=== PATIENT | male | born 1970 | race Caucasian/White ===

== ENCOUNTER 2018-06-16 09:53 | Emergency (ER) | payer MEDICARE ==
[~2018-06-16] VITALS: Ht 180.3 cm; Wt 104.3 kg
[~2018-06-16 09:53] MED LIST: BACL10 PO; BUDE6HFA INH; DULERA 100 MCG/13 GM INH; ERGO400 PO; ESCI20 PO; FENOFIBRATE40 MG PO; FURO20 PO; GABA300 PO; IBUP400 PO; LITH300C PO; LORA1 PO; Lasix40 MG PO; METO25 PO; MONT10T PO; Nasonex17 GM; Norco 5-325 Ta1 EACH PO; Omeprazole20 M1; PANT20 PO; POTCHL20ER PO; Percocet 10-321 EACH PO; Prozac20 MG PO; Valium5 MG PO
[2018-06-16] MEDS ORDERED: ALFU10 PO (09:58)
[2018-06-16] MEDS ORDERED: PREG50 PO (09:59)
[2018-06-16] MEDS ORDERED: NORT25 PO (09:59)
[2018-06-16 10:21] LABS: Calcium, Ionized (POC) 1.19 mmol/L (1.10-1.46); Chloride (POC) 101 mmol/L (98-108); Creatinine (POC) 1.1 mg/dL (0.8-1.3); Glucose (ISTAT POC) 100 mg/dL (70-99); Hemoglobin (POC) 14.6 g/dL (13.5-17.5); Sodium (POC) 139 mmol/L (135-148); Total CO2 (POC) 30 mmol/L (21-32)
[2018-06-16 11:59] LABS: Lithium 0.87 mmol/L (0.60-1.20)
== END 2018-06-16 14:01 | disposition home or self-care (01) ==
LOC: ER 09:53
PROVIDERS: Emergency Medicine
DX: M79.2 Neuralgia and neuritis, unspecified (principal); R25.2 Cramp and spasm; E86.0 Dehydration; G47.00 Insomnia, unspecified; F17.210 Nicotine dependence, cigarettes, uncomplicated; Z88.5 Allergy status to narcotic agent; Z79.899 Other long term (current) drug therapy
CPT/HCPCS: 80047; 80178; 85014; 96360; 99284-25; J7030

== ENCOUNTER 2018-10-18 17:13 | Observation (INO) | payer MEDICARE ==
[~2018-10-18] VITALS: Ht 180.3 cm; Wt 104.3 kg
[~2018-10-18 17:13] MED LIST changes: +ALFU10 PO; +NORT25 PO; +PREG50 PO
[2018-10-18 18:03] LABS: Source, Urine Clean Catch
[2018-10-18 18:09] LABS: Appearance, Urine Clear (Clear); Bilirubin, Urine Neg (Neg); Blood, Urine 1+ (Neg); Color, Urine Yellow (P-Yellow); Glucose Qualitative, Urine Neg (Neg); Ketones, Urine Neg (Neg); Leukocyte Esterase, Urine 1+ (Neg); Nitrite, Urine Neg (Neg); Protein, Urine Neg (Neg); Specific Gravity, Urine 1.005 (1.003-1.022); Urobilinogen, Urine NORM (Normal)
[2018-10-18 18:26] LABS: U Amphetamine Screen Not Detected; U Barbituate Screen Not Detected; U Benzodiazapine Screen Not Detected; U Cocaine Screen Not Detected; U Methadone Screen Not Detected; U Methamphetamine Screen Not Detected
[2018-10-18 18:27] LABS: U Buprenorphine Screen Not Detected; U Cannabinoids Screen DETECTED; U Opiates Screen DETECTED; U Oxycodone Screen Not Detected; U Phencyclidine Screen Not Detected; U Propoxyphene Screen Not Detected
[2018-10-18 18:32] LABS: Bacteria Few /hpf; Squamous Epithelial Cells Few /hpf (Few); White Blood Cells, Urine 0-2 /hpf (0-5)
[2018-10-18 19:37] LABS: BASOPHILS PERCENT AUTO 1 % (0-2); EOSINOPHILS ABSOLUTE AUTO 0.19 K/mm3 (0.00-0.68); EOSINOPHILS PERCENT AUTO 1 % (0-6); Hematocrit 47.7 % (37.0-53.0); Hemoglobin 15.7 g/dL (13.5-17.5); IMMATURE GRAN ABSOLUTE AUTO 0.04 K/mm3 (0.00-0.10); IMMATURE GRAN PERCENT AUTO 0 % (0-1); LYMPHOCYTES ABSOLUTE AUTO 2.93 K/mm3 (0.84-5.20); LYMPHOCYTES PERCENT AUTO 22 % (21-46); MONOCYTES ABSOLUTE AUTO 0.71 K/mm3 (0.16-1.47); MONOCYTES PERCENT AUTO 5 % (4-13); Mean Corpuscular HGB 27.5 pg (26.0-34.0); Mean Corpuscular HGB Conc 32.9 g/dL (31.5-36.5); Mean Corpuscular Volume 84 fL (80-100); Mean Platelet Volume 8.1 fL (9.1-12.4); NEUTROPHILS PERCENT AUTO 70 % (41-73); Platelet Count 207 K/mm3 (150-400); RDW Coefficient Variation 13.9 % (11.7-14.2); RDW Standard Deviation 42.2 fL (35.1-46.3); Red Blood Cell Count 5.71 M/mm3 (4.30-5.90); White Blood Cell Count 13.17 K/mm3 (4.00-11.30)
[2018-10-18 20:01] LABS: Lithium 0.94 mmol/L (0.60-1.20)
[2018-10-18 20:03] LABS: Alanine Aminotransfer (ALT/SGP 44 U/L (12-78); Albumin/Globulin Ratio 1.2 (0.8-1.8); Alk Phos 59 U/L (50-136); Anion Gap 8 mmol/L (6-16); Aspartate Aminotrans (AST/SGOT 27 U/L (12-37); Bilirubin, Total 0.5 mg/dL (0.1-1.0); Blood Urea Nitrogen 10 mg/dL (8-24); Bun/Creatinine Ratio 9.1 (12.0-20.0); CO2, Blood 25 mmol/L (21-32); Calcium, Blood 9.3 mg/dL (8.5-10.1); Chloride, Blood 104 mmol/L (98-108); Ethanol (Alcohol), Blood, Med <3 mg/dL; Globulin, Blood 3.3 g/dL (2.2-4.0); Glomerular Filtration Rate >60 (60-); Glucose, Blood 99 mg/dL (70-99); Potassium, Blood 4.1 mmol/L (3.5-5.5); Salicylate 3.8 mg/dL (2.8-20.0); Sodium, Blood 137 mmol/L (136-145); Total Protein, Blood 7.3 g/dL (6.4-8.2)
[2018-10-18 20:14] LABS: Acetaminophen, Random <2.0 ug/mL (10.0-30.0)
[2018-10-18] MEDS ORDERED: Lithium Carbon150 MG PO (22:58)
[2018-10-18] MEDS ORDERED: Lithium Carbon450 MG PO (22:58)
[2018-10-18] MEDS ORDERED: MONT10T PO (23:00)
[2018-10-18] MEDS ORDERED: BUDE6HFA INH (23:00)
[2018-10-18] MEDS ORDERED: ARIP15 PO (23:00)
[2018-10-21 08:48] LABS: Lithium 0.72 mmol/L (0.60-1.20)
[2018-10-21] MEDS ORDERED: OLAN5 PO (09:25)
== END 2018-10-21 10:10 | disposition home or self-care (01) ==
LOC: ER 17:13 → EOR 17:14
PROVIDERS: Emergency Medicine; Physician Assistant; Psychiatry & Neurology Psychiatry
DX: R45.851 Suicidal ideations (principal); R45.850 Homicidal ideations; F31.10 Bipolar disorder, current episode manic without psychotic features, unspecified; F17.210 Nicotine dependence, cigarettes, uncomplicated; Z79.899 Other long term (current) drug therapy
CPT/HCPCS: 80053; 80178; 81001; 84443; 85025; 87086; 94640; 94760; 96372; 99285-25; C9113; G0378; G0480; Q0163; Q3014

== ENCOUNTER 2018-10-23 03:50 | Emergency (ER) | payer MEDICARE ==
[~2018-10-23] VITALS: Ht 182.9 cm; Wt 108.9 kg
[~2018-10-23 03:50] MED LIST changes: +ARIP15 PO; +Lithium Carbon150 MG PO; +Lithium Carbon450 MG PO; +OLAN5 PO
[2018-10-23 04:44] LABS: Lithium 0.84 mmol/L (0.60-1.20)
[2018-10-23 05:00] LABS: Calcium, Ionized (POC) 1.17 mmol/L (1.10-1.46); Chloride (POC) 105 mmol/L (98-108); Creatinine (POC) 1.2 mg/dL (0.8-1.3); Glucose (ISTAT POC) 111 mg/dL (70-99); Hemoglobin (POC) 14.6 g/dL (13.5-17.5); Potassium (POC) 3.9 mmol/L (3.5-5.5); Sodium (POC) 137 mmol/L (135-148); Total CO2 (POC) 24 mmol/L (21-32)
== END 2018-10-23 05:52 | disposition home or self-care (01) ==
LOC: ER 03:50
PROVIDERS: Emergency Medicine
DX: S09.90XA Unspecified injury of head, initial encounter (principal); M62.830 Muscle spasm of back; F17.210 Nicotine dependence, cigarettes, uncomplicated; Z88.5 Allergy status to narcotic agent; Z91.018 Allergy to other foods; Z79.899 Other long term (current) drug therapy; W06.XXXA Fall from bed, initial encounter
CPT/HCPCS: 80047; 80178; 85014; 99283

== ENCOUNTER → 2019-02-20 | Outpatient (CLI) | payer MEDICARE ==
[2019-02-20 12:31] LABS: BASOPHILS ABSOLUTE AUTO 0.09 K/mm3 (0.00-0.23); BASOPHILS PERCENT AUTO 1 % (0-2); EOSINOPHILS ABSOLUTE AUTO 0.23 K/mm3 (0.00-0.68); EOSINOPHILS PERCENT AUTO 3 % (0-6); Hematocrit 48.1 % (37.0-53.0); Hemoglobin 15.8 g/dL (13.5-17.5); IMMATURE GRAN ABSOLUTE AUTO 0.03 K/mm3 (0.00-0.10); IMMATURE GRAN PERCENT AUTO 0 % (0-1); LYMPHOCYTES PERCENT AUTO 27 % (21-46); MONOCYTES ABSOLUTE AUTO 0.56 K/mm3 (0.16-1.47); MONOCYTES PERCENT AUTO 7 % (4-13); Mean Corpuscular HGB 27.4 pg (26.0-34.0); Mean Corpuscular HGB Conc 32.8 g/dL (31.5-36.5); Mean Corpuscular Volume 83 fL (80-100); NEUTROPHILS ABSOLUTE AUTO 5.27 K/mm3 (1.96-9.15); NEUTROPHILS PERCENT AUTO 62 % (41-73); Platelet Count 184 K/mm3 (150-400); RDW Standard Deviation 42.1 fL (35.1-46.3); Red Blood Cell Count 5.77 M/mm3 (4.30-5.90); White Blood Cell Count 8.48 K/mm3 (4.00-11.30)
[2019-02-20 12:41] LABS: Alanine Aminotransfer (ALT/SGP 60 U/L (12-78); Albumin, Blood 3.8 g/dL (3.4-5.0); Albumin/Globulin Ratio 1.1 (0.8-1.8); Alk Phos 62 U/L (40-126); Anion Gap 5 mmol/L (6-16); Aspartate Aminotrans (AST/SGOT 27 U/L (12-37); Bilirubin, Total 0.3 mg/dL (0.1-1.0); Blood Urea Nitrogen 16 mg/dL (8-24); Bun/Creatinine Ratio 14.5 (12.0-20.0); CO2, Blood 30 mmol/L (21-32); Calcium, Blood 8.9 mg/dL (8.5-10.1); Chloride, Blood 105 mmol/L (98-108); Globulin, Blood 3.5 g/dL (2.2-4.0); Glomerular Filtration Rate >60 (60-); Glucose, Blood 111 mg/dL (70-99); Potassium, Blood 3.8 mmol/L (3.5-5.5); Sodium, Blood 140 mmol/L (136-145); Total Protein, Blood 7.3 g/dL (6.4-8.2)
== END | disposition home or self-care (01) ==
LOC: LAB EV 12:24 → LAB SHORT 12:24
PROVIDERS: Physician Assistant
DX: R10.11 Right upper quadrant pain (principal)
CPT/HCPCS: 80053; 83690; 85025

== ENCOUNTER 2019-03-02 20:56 | Emergency (ER) | payer MEDICARE ==
[~2019-03-02] VITALS: Ht 180.3 cm; Wt 113.4 kg
[2019-03-02 21:38] LABS: BASOPHILS ABSOLUTE AUTO 0.07 K/mm3 (0.00-0.23); BASOPHILS PERCENT AUTO 1 % (0-2); EOSINOPHILS ABSOLUTE AUTO 0.28 K/mm3 (0.00-0.68); EOSINOPHILS PERCENT AUTO 3 % (0-6); Hematocrit 49.1 % (37.0-53.0); Hemoglobin 15.8 g/dL (13.5-17.5); IMMATURE GRAN ABSOLUTE AUTO 0.03 K/mm3 (0.00-0.10); IMMATURE GRAN PERCENT AUTO 0 % (0-1); LYMPHOCYTES ABSOLUTE AUTO 3.24 K/mm3 (0.84-5.20); LYMPHOCYTES PERCENT AUTO 30 % (21-46); MONOCYTES ABSOLUTE AUTO 0.73 K/mm3 (0.16-1.47); MONOCYTES PERCENT AUTO 7 % (4-13); Mean Corpuscular HGB 27.3 pg (26.0-34.0); Mean Corpuscular HGB Conc 32.2 g/dL (31.5-36.5); Mean Corpuscular Volume 85 fL (80-100); NEUTROPHILS ABSOLUTE AUTO 6.53 K/mm3 (1.96-9.15); NEUTROPHILS PERCENT AUTO 60 % (41-73); Platelet Count 210 K/mm3 (150-400); RDW Coefficient Variation 13.9 % (11.7-14.2); RDW Standard Deviation 42.6 fL (35.1-46.3); Red Blood Cell Count 5.78 M/mm3 (4.30-5.90); White Blood Cell Count 10.88 K/mm3 (4.00-11.30)
[2019-03-02 22:00] LABS: Alanine Aminotransfer (ALT/SGP 84 U/L (12-78); Albumin, Blood 3.9 g/dL (3.4-5.0); Albumin/Globulin Ratio 1.1 (0.8-1.8); Alk Phos 74 U/L (50-136); Anion Gap 6 mmol/L (6-16); Aspartate Aminotrans (AST/SGOT 43 U/L (12-37); Bilirubin, Total 0.2 mg/dL (0.1-1.0); Blood Urea Nitrogen 14 mg/dL (8-24); Bun/Creatinine Ratio 13.7 (12.0-20.0); CO2, Blood 28 mmol/L (21-32); Calcium, Blood 9.1 mg/dL (8.5-10.1); Chloride, Blood 107 mmol/L (98-108); Creatinine, Blood 1.02 mg/dL (0.60-1.20); Globulin, Blood 3.4 g/dL (2.2-4.0); Glomerular Filtration Rate >60 (60-); Glucose, Blood 139 mg/dL (70-99); Potassium, Blood 4.2 mmol/L (3.5-5.5); Sodium, Blood 141 mmol/L (136-145); Total Protein, Blood 7.3 g/dL (6.4-8.2)
[2019-03-02 22:21] LABS: Source, Urine Clean Catch
[2019-03-02 22:23] LABS: Bilirubin, Urine Neg (Neg); Blood, Urine 1+ (Neg); Glucose Qualitative, Urine Neg (Neg); Ketones, Urine Neg (Neg); Leukocyte Esterase, Urine 1+ (Neg); Nitrite, Urine Neg (Neg); Protein, Urine Neg (Neg); Urobilinogen, Urine NORM (Normal)
[2019-03-02 22:28] LABS: Appearance, Urine Clear (Clear); Color, Urine Yellow (P-Yellow)
[2019-03-02 22:29] LABS: Bacteria Few /hpf; Squamous Epithelial Cells Not Seen /hpf (Few); White Blood Cells, Urine 0-2 /hpf (0-5)
== END 2019-03-03 01:25 | disposition home or self-care (01) ==
LOC: ER 20:56
PROVIDERS: Emergency Medicine
DX: R10.11 Right upper quadrant pain (principal); F17.210 Nicotine dependence, cigarettes, uncomplicated
CPT/HCPCS: 36415; 74176; 76705; 80053; 81001; 83690; 85025; 87086; 96361; 96374; 96375; 99284-25; A9270-GY; J2405; J3010; J7030

== ENCOUNTER 2020-12-19 18:58 | Emergency (ER) | payer OTHER ==
[~2020-12-19] VITALS: Ht 180.3 cm; Wt 117.9 kg
[2020-12-19 19:38] LABS: BASOPHILS ABSOLUTE AUTO 0.09 K/mm3 (0.00-0.23); BASOPHILS PERCENT AUTO 1 % (0-2); EOSINOPHILS ABSOLUTE AUTO 0.32 K/mm3 (0.00-0.68); EOSINOPHILS PERCENT AUTO 3 % (0-6); Hematocrit 50.1 % (37.0-53.0); Hemoglobin 16.5 g/dL (13.5-17.5); IMMATURE GRAN ABSOLUTE AUTO 0.07 K/mm3 (0.00-0.10); IMMATURE GRAN PERCENT AUTO 1 % (0-1); LYMPHOCYTES ABSOLUTE AUTO 3.05 K/mm3 (0.84-5.20); LYMPHOCYTES PERCENT AUTO 24 % (21-46); MONOCYTES ABSOLUTE AUTO 1.01 K/mm3 (0.16-1.47); MONOCYTES PERCENT AUTO 8 % (4-13); Mean Corpuscular HGB 27.8 pg (26.0-34.0); Mean Corpuscular HGB Conc 32.9 g/dL (31.5-36.5); Mean Corpuscular Volume 84 fL (80-100); Mean Platelet Volume 8.3 fL (9.1-12.4); NEUTROPHILS ABSOLUTE AUTO 8.28 K/mm3 (1.96-9.15); NEUTROPHILS PERCENT AUTO 65 % (41-73); Platelet Count 203 K/mm3 (150-400); RDW Coefficient Variation 13.9 % (11.7-14.2); Red Blood Cell Count 5.94 M/mm3 (4.30-5.90); White Blood Cell Count 12.82 K/mm3 (4.00-11.30)
[2020-12-19 20:03] LABS: Alanine Aminotransfer (ALT/SGP 176 U/L (12-78); Albumin, Blood 3.7 g/dL (3.4-5.0); Albumin/Globulin Ratio 1.1 (0.8-1.8); Alk Phos 71 U/L (50-136); Anion Gap 6 mmol/L (6-16); Aspartate Aminotrans (AST/SGOT 105 U/L (12-37); Bilirubin, Total 0.2 mg/dL (0.1-1.0); Blood Urea Nitrogen 18 mg/dL (8-24); Bun/Creatinine Ratio 20.3 (12.0-20.0); CO2, Blood 28 mmol/L (21-32); Calcium, Blood 9.3 mg/dL (8.5-10.1); Chloride, Blood 107 mmol/L (98-108); Creatinine, Blood 0.89 mg/dL (0.60-1.20); Globulin, Blood 3.5 g/dL (2.2-4.0); Glomerular Filtration Rate >60 (60-); Glucose, Blood 130 mg/dL (70-99); Sodium, Blood 141 mmol/L (136-145); Total Protein, Blood 7.2 g/dL (6.4-8.2); Troponin I <0.015 ng/mL (0.000-0.040)
[2020-12-19] MEDS ORDERED: AMIT10 PO (20:33)
[2020-12-19] MEDS ORDERED: SYMBICORT 80-10.2 GM (20:34)
[2020-12-19] MEDS ORDERED: ALBU90OI (20:34)
== END 2020-12-19 23:22 | disposition home or self-care (01) ==
LOC: ER 18:58
PROVIDERS: Physician Assistant
DX: J40 Bronchitis, not specified as acute or chronic (principal); R27.0 Ataxia, unspecified; R60.0 Localized edema; Z79.51 Long term (current) use of inhaled steroids; Z79.899 Other long term (current) drug therapy; Z88.5 Allergy status to narcotic agent; Z91.018 Allergy to other foods
CPT/HCPCS: 36415; 71046; 80053; 83880; 84484; 85025; 85379; 93005; 93010; 99285-25

== ENCOUNTER → 2021-08-08 | Outpatient (CLI) | payer OTHER ==
[~2021-08-08] MED LIST changes: +ALBU90OI; +AMIT10 PO; +SYMBICORT 80-10.2 GM
[2021-08-08 13:11] LABS: Lithium 0.58 mmol/L (0.60-1.20)
== END | disposition home or self-care (01) ==
LOC: LAB SHORT 10:13 → LAB 10:13
PROVIDERS: Nurse Practitioner Psychiatric/Mental Health
DX: Z51.81 Encounter for therapeutic drug level monitoring (principal); Z79.899 Other long term (current) drug therapy
CPT/HCPCS: 36415; 80178

== ENCOUNTER → 2022-03-06 | Outpatient (CLI) | payer OTHER | END | disposition home or self-care (01) | LOC: LAB SHORT 09:55 → LAB 09:55 | DX: L98.8 Other specified disorders of the skin and subcutaneous tissue (principal) | CPT/HCPCS: 87220 ==

== ENCOUNTER 2023-06-27 07:59 | Inpatient (IN) | payer OTHER, MEDICAID ==
[~2023-06-27] VITALS: Ht 180.3 cm; Wt 121.9 kg
[2023-06-27] VITALS (40 sets, daily range): BP systolic 127–164; BP diastolic 54–76
[2023-06-27 08:26] LABS: BASOPHILS ABSOLUTE AUTO 0.09 K/mm3 (0.00-0.23); BASOPHILS PERCENT AUTO 1 % (0-2); EOSINOPHILS ABSOLUTE AUTO 0.03 K/mm3 (0.00-0.68); EOSINOPHILS PERCENT AUTO 0 % (0-6); Hematocrit 42.1 % (37.0-53.0); Hemoglobin 13.6 g/dL (13.5-17.5); IMMATURE GRAN ABSOLUTE AUTO 0.09 K/mm3 (0.00-0.10); IMMATURE GRAN PERCENT AUTO 1 % (0-1); LYMPHOCYTES ABSOLUTE AUTO 3.61 K/mm3 (0.84-5.20); LYMPHOCYTES PERCENT AUTO 20 % (21-46); MONOCYTES PERCENT AUTO 9 % (4-13); Mean Corpuscular HGB 26.4 pg (26.0-34.0); Mean Corpuscular HGB Conc 32.3 g/dL (31.5-36.5); Mean Corpuscular Volume 82 fL (80-100); Mean Platelet Volume 9.8 fL (9.1-12.4); NEUTROPHILS ABSOLUTE AUTO 12.26 K/mm3 (1.96-9.15); NEUTROPHILS PERCENT AUTO 69 % (41-73); Platelet Count 223 K/mm3 (150-400); RDW Coefficient Variation 15.9 % (11.7-14.2); RDW Standard Deviation 46.8 fL (35.1-46.3); Red Blood Cell Count 5.16 M/mm3 (4.30-5.90); White Blood Cell Count 17.68 K/mm3 (4.00-11.30); pH Blood Venous 7.43 (7.34-7.37)
[2023-06-27 08:27] LABS: Base Excess Venous 3.2 mmol/L; Bicarbonate Venous 26.8 mmol/L (24.0-30.0); PCO2 Venous 41.4 mmHg (38-42)
[2023-06-27 09:04] LABS: Albumin, Blood 3.4 g/dL (3.4-5.0); Albumin/Globulin Ratio 0.8 (0.8-1.8); Bilirubin, Total 0.7 mg/dL (0.1-1.0); Bun/Creatinine Ratio 30.3 (12.0-20.0); Calcium, Blood 11.6 mg/dL (8.5-10.1); Creatinine, Blood 1.95 mg/dL (0.60-1.20); Potassium, Blood 3.4 mmol/L (3.5-5.5); Total Protein, Blood 7.4 g/dL (6.4-8.2)
[2023-06-27 09:17] LABS: Lithium 0.55 mmol/L (0.60-1.20)
[2023-06-27 09:37] LABS: Influenza A, PCR NEGATIVE (NEGATIVE); Influenza B, PCR NEGATIVE (NEGATIVE); Resp Syncytial Virus, PCR NEGATIVE (NEGATIVE); SARS-Cov-2 (COVID-19) PCR, MMC NEGATIVE (NEGATIVE)
[2023-06-27 12:51] LABS: Glucose, Blood 805 mg/dL (70-99)
[2023-06-27 14:19] LABS: Source, Urine Foley catheter
--- NOTE | 2023-06-27 14:23 | NUR ---
Pt's landlord at [facility] called concerned that pt has 2 dogs in his apartment and there is not air conditioning. Referred her to contact Carmita Toney to see if they can assist with housing the dogs temporarily.
[2023-06-27 14:25] LABS: Appearance, Urine Clear (Clear); Bilirubin, Urine Neg (Neg); Blood, Urine 5+ (Neg); Glucose Qualitative, Urine 4+ (Neg); Ketones, Urine Neg (Neg); Leukocyte Esterase, Urine Neg (Neg); Nitrite, Urine Neg (Neg); Protein, Urine Neg (Neg); Urobilinogen, Urine NORM (Normal); pH, Urine 6.5 (5.0-8.0)
[2023-06-27 14:26] LABS: Glucose, Blood 838 mg/dL (70-99)
[2023-06-27 14:42] LABS: Color, Urine Pale Yellow (P-Yellow)
[2023-06-27 14:43] LABS: Bacteria Few /hpf; Red Blood Cells, Urine 0-2 /hpf (0-2); Squamous Epithelial Cells Rare /hpf (Few); White Blood Cells, Urine 0-2 /hpf (0-5)
[2023-06-27 15:03] LABS: Bun/Creatinine Ratio 30.9 (12.0-20.0); Calcium, Blood 10.5 mg/dL (8.5-10.1); Creatinine, Blood 1.75 mg/dL (0.60-1.20); Potassium, Blood 3.3 mmol/L (3.5-5.5)
[2023-06-27 16:57] LABS: Glucose, Blood 774 mg/dL (70-99)
[2023-06-27 18:07] LABS: Glucose, Blood 757 mg/dL (70-99)
[2023-06-27 18:26] LABS: Bun/Creatinine Ratio 31.9 (12.0-20.0); Calcium, Blood 10.9 mg/dL (8.5-10.1); Creatinine, Blood 1.6 mg/dL (0.60-1.20); Potassium, Blood 2.6 mmol/L (3.5-5.5)
--- NOTE | 2023-06-27 19:00 | NUR ---
ASSUMED CARE ASSUMED CARE OF PATIENT. REMAINS INTUBATED- AC/VC 10/400/5/50%. RR 10. NO SPONTANEOUS RESPIRATIONS OR MOVEMENT NOTED. OG CLAMPED AT THIS TIME. TEMP WADE PATENT AND DRAINING TO GRAVITY. TEMP 98.1F. RIGHT FEMORAL ARTERIAL LINE PATENT. MONITOR SHOWS SR, RATE 80s. LEVOPHED INFUSING AT 2 MCG/MIN TO MAINTAIN MAP >65. CONCEPCION PICC LINE NOTED, DRSG C/D/I. SEE ADMIT ASSESSMENT FOR FULL ASSESSMENT.
--- NOTE | 2023-06-27 19:20 | NUR ---
Shift summary. Pt arrived to ICU at 1200, oriented to self only, not following commands. Pt difficult to redirect and provide care for. Orders obtained for precedex and SWB restraints. Precedex infusing titrated up for pt response, infusing at 0.7 mcg/kg/hr. Insulin infusing at 10 units/hr. Patterson catheter inserted this afternoon, draining to gravity. Pt remains restless, pulling at restraints/lines. No acute events, VS stable. Report given to nightshift RN.
[2023-06-27 19:27] LABS: Glucose, Blood 721 mg/dL (70-99)
--- NOTE | 2023-06-27 19:35 | NUR ---
ASSUMED CARE OF PATIENT AT 1900. NEURO: PATIENT IS CURRENTLY RECEIVING PRECEDEX; UNABLE TO ASSESS FULL NEUROLOGICAL STATUS. WITHDRAWS TO NAILBED PRESSURE. CARDIAC: SINUS RHYTHM, HR OF 91, BP AT 148/63. RESP: RECEVING 3LPM O2 VIA NASAL CANNULA, O2 SATURATION OF 95%. GI: LAST BM UNKNOWN. HYPOACTIVE BOWEL SOUNDS IN AUSCULTATED IN ALL FOUR QUADRANTS. : WADE IN PLACE, DRAINING CLEAR YELLOW URINE. UCX PENDING.
[2023-06-27 20:50] LABS: Glucose, Blood 655 mg/dL (70-99)
[2023-06-27 21:10] LABS: Magnesium, Blood 2.7 mg/dL (1.6-2.4)
[2023-06-27 21:20] LABS: Albumin, Blood 2.9 g/dL (3.4-5.0); Anion Gap 7 mmol/L (6-16); Blood Urea Nitrogen 46 mg/dL (8-24); Bun/Creatinine Ratio 28.2 (12.0-20.0); CO2, Blood 25 mmol/L (21-32); Calcium, Blood 10.5 mg/dL (8.5-10.1); Chloride, Blood 131 mmol/L (98-108); Creatinine, Blood 1.63 mg/dL (0.60-1.20); Glomerular Filtration Rate 50 (60-); Sodium, Blood 163 mmol/L (136-145)
[2023-06-27 21:21] LABS: Potassium, Blood 2.4 mmol/L (3.5-5.5)
[2023-06-27 21:22] LABS: Glucose, Blood 653 mg/dL (70-99); Phosphorus, Blood 0.9 mg/dL (2.5-4.9)
[2023-06-27 21:59] LABS: PCO2 Arterial 42.1 mmHg (35-45); PO2 Arterial 77.7 mmHg (80-100)
[2023-06-27 22:18] LABS: Lithium 0.35 mmol/L (0.60-1.20)
[2023-06-27 22:24] LABS: Beta-hydroxybutyrate 2.2 mg/dL (0.2-2.8)
[2023-06-27 23:30] LABS: Glucose, Blood 548 mg/dL (70-99)
[2023-06-28] VITALS (78 sets, daily range): BP systolic 110–149; BP diastolic 56–82
[2023-06-28 04:46] LABS: Hemoglobin 12.1 g/dL (13.5-17.5); Mean Corpuscular HGB 26.2 pg (26.0-34.0); Mean Corpuscular Volume 84 fL (80-100); Mean Platelet Volume 9.3 fL (9.1-12.4); Platelet Count 172 K/mm3 (150-400); RDW Coefficient Variation 15.9 % (11.7-14.2); RDW Standard Deviation 49.7 fL (35.1-46.3); Red Blood Cell Count 4.62 M/mm3 (4.30-5.90); White Blood Cell Count 17.69 K/mm3 (4.00-11.30)
[2023-06-28 05:15] LABS: Magnesium, Blood 2.6 mg/dL (1.6-2.4)
[2023-06-28 05:20] LABS: Lithium 0.34 mmol/L (0.60-1.20)
[2023-06-28 05:22] LABS: Albumin, Blood 2.8 g/dL (3.4-5.0); Anion Gap 6 mmol/L (6-16); Blood Urea Nitrogen 42 mg/dL (8-24); Bun/Creatinine Ratio 24.3 (12.0-20.0); CO2, Blood 24 mmol/L (21-32); Calcium, Blood 9.8 mg/dL (8.5-10.1); Chloride, Blood 136 mmol/L (98-108); Creatinine, Blood 1.73 mg/dL (0.60-1.20); Glomerular Filtration Rate 47 (60-); Glucose, Blood 319 mg/dL (70-99); Phosphorus, Blood 4.2 mg/dL (2.5-4.9); Potassium, Blood 3.4 mmol/L (3.5-5.5); Sodium, Blood 166 mmol/L (136-145)
--- NOTE | 2023-06-28 06:04 | NUR ---
END OF SHIFT SUMMARY PATIENT WAS NOT ALERT OR ORIENTED FOR THE MAJORITY OF THE SHIFT, HOWEVER AROUND 0530 PATIENT BEGAN TO SIT UP IN BED, WAS PULLING AT TUBES AND LINES, AND WAS UNABLE TO BE REDIRECTED. HE WOULD OPEN HIS EYES BRIEFLY TO VERBAL STIMULI BUT COULD NOT ADEQUATELY FOLLOW COMMANDS. ATIVAN WAS ADMINISTERED AND PATIENT IS NOW RESTING COMFORTABLY. CARDIAC: BP REMAINED STABLE THROUGHOUT ENTIRETY OF SHIFT, SINUS RHYTHM, RADIAL AND PEDAL PULSES PRESENT, EQUAL, AND STRONG. RESP: CURRENTLY RECEIVING 4LPM O2 VIA OXIMASK. O2 SATURATIONS REMAINED IN THE 90'S. GI: LAST BM UNKNOWN, BOWEL TONES HYPOACTIVE IN ALL FOUR QUADRANTS. : WADE IN PLACE. CURRENTLY IN THE PROCESS OF COLLECTING 24 HOUR URINE - END TIME OF 2345 ON 06/28/23. NEPHROLOGY ALSO REQUESTED NOTIFICATION OF ONE HOUR URINE OUTPUT WHICH WILL BE COMPLETED AT 0630. WILL AWAIT POSSIBLE ORDERS PENDING THAT RESULT. LINES: PIC TO R WRIST AND R FOREARM. BOTH LINES FLUSH WELL BUT DO NOT DRAW. CURRENTLY INFUSING D5 @ 200mL/HR, INSULIN AT 7 UNITS, AND PRECEDEX AT 0.7. CBG'S: HAVE BEEN CHECKING HOURLY PER PROVIDER ORDERS. RECENT CBG OF 247, PENDING ONE HOUR RECHECK AT 0630 AND FURTHER ORDERS FROM NEPHROLOGY PENDING THAT RESULT.
[2023-06-28 16:28] LABS: Sodium, Blood 159 mmol/L (136-145)
[2023-06-28 17:25] LABS: Sodium, Blood 160 mmol/L (136-145)
[2023-06-28 17:39] LABS: Osmolality, Serum 353 mos/KG (275-300)
[2023-06-28 17:47] LABS: Osmolality, Serum 353 mos/KG (275-300)
--- NOTE | 2023-06-28 18:35 | NUR ---
Shift summary. Pt in bed for this shift. Precedex infusing at 0.7 mcg/kg/hr. Insulin titrated up to 13 units/hr per Dr. Garcia. D5 1/2NS infusing at 350 ml/hr. Pt on via NC at 3 L/min. Patterson cather in place, draining to gravity. 24hr urine collection in progress. Pt remains restless/disoriented, pulling at restraints/lines. VS stable this shift, see chart for further details. Will report off to nightshift RN.
--- NOTE | 2023-06-28 19:13 | NUR ---
ASSUMED CARE OF PATIENT. PATIENT IS SLEEPING AND ON PRECEDEX DRIP - UNABLE TO ASSES FULL NEUROLOGICAL STATUS. HE WILL SLIGHTLY MOVE HIS BODY WHEN YOU SAY HIS NAME. SINUS AT 62, BP AT 122/77. PEDAL AND RADIAL PULSES ARE PRESENT, EQUAL, AND STRONG. EDEMA NOTED IN BLE. PATIENT IS CURRENTLY RECEIVING 3LPM O2 VIA NASAL CANNULA WITH SATURATION AT 97%. DATE OF LAST BOWEL MOVEMENT REMAINS UNKNOWN. 24 HOUR URINE STILL IN PROCESS - WELL COLLECT ACCORDINGLY. WADE IN PLACE DRAINING CLEAR YELLOW URINE. POWERGLIDE TO GOLDIE. INSULIN CURRENTLY RUNNING AT 13 UNITS, D5 RUNNING AT 350, AND PRECEDEX RUNNING AT 0.7.
[2023-06-29] VITALS (46 sets, daily range): BP systolic 79–165; BP diastolic 44–94
[2023-06-29 00:28] LABS: Protein, Urine Quantitative 111.3 mg/dL (0.0-11.9)
[2023-06-29 05:05] LABS: Hematocrit 36.7 % (37.0-53.0); Hemoglobin 11.4 g/dL (13.5-17.5)
[2023-06-29 05:31] LABS: Albumin, Blood 2.5 g/dL (3.4-5.0); Anion Gap 5 mmol/L (6-16); Blood Urea Nitrogen 32 mg/dL (8-24); Bun/Creatinine Ratio 16.8 (12.0-20.0); CO2, Blood 27 mmol/L (21-32); Chloride, Blood 122 mmol/L (98-108); Glomerular Filtration Rate 42 (60-); Glucose, Blood 255 mg/dL (70-99); Magnesium, Blood 2.4 mg/dL (1.6-2.4); Phosphorus, Blood 4.8 mg/dL (2.5-4.9); Potassium, Blood 3.2 mmol/L (3.5-5.5); Sodium, Blood 154 mmol/L (136-145)
--- NOTE | 2023-06-29 06:23 | NUR ---
END OF SHIFT SUMMARY PATIENT REMAINED ASLEEP AND ON PRECEDEX DRIP THROUGHOUT THE ENTIRETY OF THE SHIFT. HE WOULD OCCASIONALLY MOVE AND MOAN DURING HIS SLEEP, BUT WHEN YOU WOULD TRY AND ASK HIM QUESTIONS HE WOULD NOT RESPOND. BP REMAINED STABLE THROUGHOUT ENTIRETY OF SHIFT, HR IN SINUS RHYTHM AT 70'S AND 80'S. CURRENTLY RECEIVING 4LPM O2 VIA NC. SATURATIONS IN HIGH 90'S. NO BM SINCE ADMISSION AND LAST KNOWN BM STILL UNKNOWN. 24 HOUR URINE COMPLETED, DR. BURGESS NOTIFIED OF RESULTS. WADE STILL PLACED, DRAINING CLEAR YELLOW URINE TO GRAVITY. PIV TO RFA, PG TO GOLDIE. INSULIN CURRENTLY RUNNING AT 11 UNITS/HR, PRECEDEX AT 0.7 MCG/KG/HR, D5W AT 350 mL/HR. WILL CONTINUE TO MONITOR AND REPORT TO ONCOMING NURSE INDICATED.
--- NOTE | 2023-06-29 07:21 | NUR ---
Assumed care at 0700. Report received from nightshift RN. PT sleeping in bed, on 02 via NC at 3 L/min. Precedex infusing at 0.7 mcg/kg/hr, insulin infusing at 11 units/hr, D5 1/2NS infusing at 350 ml/hr. SWB restraints in place, colindres catheter in place. No acute needs ATT, VS stable, will continue to monitor.
--- NOTE | 2023-06-29 18:41 | NUR ---
Shift summary. Pt improved this shift. Precedex and wrist restraints off since this morning. Pt able to state his name, has trouble recalling birthdate or town but knows he is in the hospital. Insulin titrated up to 11 units/hr per Dr. Garcia at 1830, D5W infusion titrated down to 300 ml/hr as well. Pt up to bedside commode twice this shift, standby assist with a walker to ambulate. No acute events this shift, sister updated this evening. See chart for further details. Will report off to nightshift RN.
--- NOTE | 2023-06-29 19:32 | NUR ---
ASSUMPTION OF CARE REPORT RECEIVED FROM MONIE RN. PT ORIENTED TO SELF AND PLACE ONLY, ALERT AND SITTING UP IN BED. OXYGEN VIA NC IN PLACE AT 3LPM. INSULIN INFUSING AT 11 UNITS/HR, D5W INFUSING AT 300MLS/HR. WADE CATHETER IN PLACE PATENT, DRAINING TO GRAVITY. NOP ACUTE NEEDS AT TIME OF ASSESSMENT.
--- NOTE | 2023-06-29 21:56 | NUR ---
PHYSICIAN NOTIFY CALLED DR. BURGESS REGUADING SODIUM, GLUCOSE, AND URINE OUTPUT LEVELS. ALSO INFORMED HIM OF CURRENT DRIP RATES. ORDERS RECEIVED.
[2023-06-29] MEDS ORDERED: Cymbalta20 MG PO (22:57)
[2023-06-29] MEDS ORDERED: TAMS.4ER PO (22:57)
[2023-06-29] MEDS ORDERED: PANT40 PO (22:57)
[2023-06-29] MEDS ORDERED: METF500 PO (22:57)
[2023-06-29] MEDS ORDERED: PREG300 PO (22:58)
[2023-06-29] MEDS ORDERED: OLAN10 PO (22:58)
[2023-06-29] MEDS ORDERED: FURO20 PO (22:58)
[2023-06-30] VITALS (22 sets, daily range): BP systolic 117–178; BP diastolic 63–116
[2023-06-30 04:07] LABS: BASOPHILS ABSOLUTE AUTO 0.03 K/mm3 (0.00-0.23); BASOPHILS PERCENT AUTO 0 % (0-2); EOSINOPHILS ABSOLUTE AUTO 0.33 K/mm3 (0.00-0.68); EOSINOPHILS PERCENT AUTO 3 % (0-6); Hematocrit 36.6 % (37.0-53.0); Hemoglobin 11.6 g/dL (13.5-17.5); IMMATURE GRAN ABSOLUTE AUTO 0.08 K/mm3 (0.00-0.10); IMMATURE GRAN PERCENT AUTO 1 % (0-1); LYMPHOCYTES ABSOLUTE AUTO 2.48 K/mm3 (0.84-5.20); LYMPHOCYTES PERCENT AUTO 20 % (21-46); MONOCYTES ABSOLUTE AUTO 0.58 K/mm3 (0.16-1.47); MONOCYTES PERCENT AUTO 5 % (4-13); Mean Corpuscular HGB 26.5 pg (26.0-34.0); Mean Corpuscular HGB Conc 31.7 g/dL (31.5-36.5); Mean Corpuscular Volume 84 fL (80-100); Mean Platelet Volume 9.5 fL (9.1-12.4); NEUTROPHILS ABSOLUTE AUTO 8.76 K/mm3 (1.96-9.15); NEUTROPHILS PERCENT AUTO 72 % (41-73); NRBC ABSOLUTE 0.02 K/mm3 (0.00-0.02); NRBC Auto 0.2 /100 WBC (0.0-0.2); Platelet Count 130 K/mm3 (150-400); RDW Coefficient Variation 15.9 % (11.7-14.2); RDW Standard Deviation 49.1 fL (35.1-46.3); Red Blood Cell Count 4.37 M/mm3 (4.30-5.90); White Blood Cell Count 12.26 K/mm3 (4.00-11.30)
[2023-06-30 04:23] LABS: Magnesium, Blood 2.7 mg/dL (1.6-2.4)
[2023-06-30 04:24] LABS: Albumin, Blood 2.7 g/dL (3.4-5.0); Anion Gap 6 mmol/L (6-16); Blood Urea Nitrogen 20 mg/dL (8-24); CO2, Blood 26 mmol/L (21-32); Calcium, Blood 7.8 mg/dL (8.5-10.1); Chloride, Blood 117 mmol/L (98-108); Creatinine, Blood 1.25 mg/dL (0.60-1.20); Glomerular Filtration Rate 69 (60-); Glucose, Blood 322 mg/dL (70-99); Phosphorus, Blood 2.8 mg/dL (2.5-4.9); Potassium, Blood 3.2 mmol/L (3.5-5.5); Sodium, Blood 149 mmol/L (136-145)
--- NOTE | 2023-06-30 05:39 | NUR ---
PHYSICIAN NOTIFY CALLED DR. BURGESS REGARDING AM LABS, URINE OUTPUT, AND CURRENT DRIP RATES. ORDERS RECEIVED.
--- NOTE | 2023-06-30 05:45 | NUR ---
SHIFT SUMMARY PT IS ALERT. HE IS ORIENTED TO SELF AND PLACE ONLY, FORGETFUL AT TIMES BUT FOLLOWS COMMANDS. PT RESTLESS AND ANXIOUS AT TIMES MEDICATED PER EMAR. BED ALARM ON. PT HAS BEEN IN SR ON THE LAYER OFF WITH PERIOD OF SINUS TACH. BLOOD PRESSURE ELEVATED SYSTOLIC 150-160'S MEDICATED PER EMAR. PT HAS OCCASIONAL PRODUCTIVE COUGH WITH SMALL AMOUNTS OF WHITE SPUTUM. HE HAS A WADE CATHETER IN PLACE DRAINING YELLOW URINE TO GRAVITY BELOW THE LEVEL OF THE BLADDER. PT HAS BEEN AFEBRILE. POWERGLIDE IN PLACE TO GOLDIE, D5 INFUSING AT 350MLS/HR. KCL ALSO INFUSING TO POWERGLIDE AT 67.5MLS/HOUR. INSULIN INFUSING AT 12 UNITS/HR. PT UP TO BEDSIDE COMMODE WITH 1 PERSON SBA AND WALKER. PT ON RA OXYGEN SAT > 95%. PT HAS HAD NO ACCUTE DISTRESS THIS SHIFT.
--- NOTE | 2023-06-30 06:51 | NUR ---
PHYSICIAN NOTIFIED CALLED DR. PINA REGARDING PTS BLOOD PRESSURE OF SYSTOLIC 160-170'S. ORDERS RECEIVED.
--- NOTE | 2023-06-30 14:08 | NUR ---
Pt still disoriented and confussed. He was able to tell me he has a sister in [place]. He does not have his phone or wallet. called his landlord she was able to let me know his friends came over and took his dogs updated bedside nurse on his other sisters information. His landlord ask me to advise him they were in his home to secure the pets. Will reassess tomorrow with PT/OT on best plan of care. May not be able to live on his own much longer. High risk for readmisssion.
--- NOTE | 2023-06-30 17:26 | NUR ---
SHIFT SUMMARY NO ACUTE CHANGES THIS SHIFT. PT RESPONSIVE TO VOICE, ORIENTED TO SELF AND KNOWS HE IS IN HOSPITAL, UNSURE OF YEAR OR SEASON. ANSWERS MOST QUESTIONS APPROPRIATELY. FOLLOWS COMMANDS. GENERALIZED WEAKNESS, ONE PERSON ASSIST c WALKER TO CHAIR. HAS BEEN UP IN CHAIR HALF OF SHIFT. LUNGS CLEAR, ON RA, O2 SATS > 95%. SR, RATE 70'S. BP STABLE. POOR APPETITE, ATE ~5-10% OF EACH MEAL. WADE PATENT, IN PLACE FOR HOURLY I&O'S. 2350ML CLEAR YELLOW URINE OUT. INSULIN GTT AND D5 INFUSING FOR HYPERNATREMIA. PLAN FOR 1800 NA LEVEL. CBG q2 HR. WILL CONTINUE TO MONITOR UNTIL REPORT TO ONCOMING NURSE.
--- NOTE | 2023-06-30 19:29 | NUR ---
ASSUMPTION OF CARE REPORT RECEIVED FROM MONIE RN. PT ALERT AND ORIENTED TO SELF, PLACE, YEAR, AND TOWN. PT SITTING UP IN BEDSIDE CHAIR. PT ON ROOM AIR. INSULIN INFUSING AT 20 UNITS/HR, D5W INFUSING AY 250MLS/HR. WADE CATHETER IN PLACE PATENT, DRAINING TO GRAVITY. NO ACUTE NEEDS AT TIME OF ASSESSMENT.
--- NOTE | 2023-06-30 21:51 | NUR ---
PHYSICIAN NOTIFY CALLED DR. BURGESS REGARDING PATIENT SODIUM AND GLUCOSE LEVELS. ALSO INFORMED HIM OF INSULIN AND D5W INFUSION RATES. ORDERS RECEIVED.
[2023-07-01] VITALS (21 sets, daily range): BP systolic 96–159; BP diastolic 55–88
[2023-07-01 02:17] LABS: Hematocrit 35.2 % (37.0-53.0); Hemoglobin 11.2 g/dL (13.5-17.5)
[2023-07-01 02:51] LABS: Albumin, Blood 2.6 g/dL (3.4-5.0); Anion Gap 6 mmol/L (6-16); Blood Urea Nitrogen 14 mg/dL (8-24); Bun/Creatinine Ratio 12.8 (12.0-20.0); CO2, Blood 26 mmol/L (21-32); Calcium, Blood 7.7 mg/dL (8.5-10.1); Chloride, Blood 114 mmol/L (98-108); Creatinine, Blood 1.09 mg/dL (0.60-1.20); Glomerular Filtration Rate 81 (60-); Glucose, Blood 170 mg/dL (70-99); Magnesium, Blood 2.7 mg/dL (1.6-2.4); Phosphorus, Blood 2.7 mg/dL (2.5-4.9); Potassium, Blood 3.2 mmol/L (3.5-5.5); Sodium, Blood 146 mmol/L (136-145)
--- NOTE | 2023-07-01 03:09 | NUR ---
PHYSICIAN NOTIFY CALLED DR. BURGESS WITH 0200 LAB RESULTS. ALSO INFOMRED HIM OF CURRENT INFUSION RATES. ORDERS RECEIVED.
--- NOTE | 2023-07-01 05:27 | NUR ---
PHYSICIAN NOTIFY SPOKE WITH DR. ADITYA GONSALEZING 0200 LAB VALUES AND CURRENT INFUSIONS. ORDERS RECEIVED.
--- NOTE | 2023-07-01 05:37 | NUR ---
SHIFT SUMMARY PT IS ALERT AND ORIENTED TO PERSON, PLACE, TIME, AND SITUATION. PT FOLLOWS COMMANDS AND USES CALL LIGHT APPROPRIATELY. PT HAS BEEN IN SR ON THE ROOFER GYPSUM AND BLOOD PRESSURE HAS BEEN STABLE THROUGHOUT THIS SHIFT. PT HAS OCCASIONAL PRODUCTIVE COUGH WITH SMALL AMOUNTS OF WHITE SPUTUM. HE HAS A WADE CATHETER IN PLACE DRAINING YELLOW URINE TO GRAVITY BELOW THE LEVEL OF THE BLADDER. PT HAS BEEN AFEBRILE. PT REPOSITIONS SELF IN BED FOR COMFORT. POWERGLIDE IN PLACE TO GOLDIE, D5 INFUSING AT 125MLS/HR. KCL ALSO INFUSING TO POWERGLIDE AT 50ML/HR. PIV TO RAC WITH INSULIN INFUSING AT 12 UNITS/HR. PT ON RA OXYGEN SAT > 95%. PT HAS HAD NO ACUTE DISTRESS THIS SHIFT.
--- NOTE | 2023-07-01 08:03 | NUR ---
ASSUMED CARE REPORT FROM JERMAINE BRITO AT 0700. PT RESTING IN BED. A&OX 4. FOLLOWING COMMANDS. ABLE TO MAKE NEEDS KNOWN. STATES HE IS FEELING BETTER. SR, RATE 80-100'S. BP STABLE. LUNGS DIM IN BASES. OCCASIONAL COUGH. INSULIN GTT INFUSING c CBG q1 HR. D5W AT 125 ML/HR FOR HYPERNATREMIA. NEXT CMP AT 0900. HOURLY I&O'S. ABD OBESE, SOFT, NON TENDER. BT X 4. GOOD APPETITE THIS AM. WADE PATENT, DRAINING CLEAR YELLOW URINE TO GRAVITY. UP TO CHAIR c WALKER. CALL LIGHT IN REACH. WILL CONTINUE TO MONITOR.
--- NOTE | 2023-07-01 12:35 | NUR ---
Theraputic time with patient advised him where his animals are at. updated child care assistant in rounds about the condition of his home and his struggles. My need longterm or alternate living situation with more support.
--- NOTE | 2023-07-01 17:33 | NUR ---
SHIFT SUMMARY PT OFF INSULIN GTT, LONG ACTING GIVEN, HSS q4 c CBG q2. CBG TRENDING DOWN, 200'S. IVF CHANGED TO 1/2 NS AT 75 ML/HR. PT REMAINS A&O X 4. FOLLOWS COMMANDS. WORKED c PHYSICAL THERAPY, AMB IN UNIT c WALKER TWICE, STANDBY ASSIST. UP TO TOLIET IN ROOM. SHOWERED c ASSIST THIS SHIFT. LUNGS CLEAR. SR, RATE 80-100'S. BP STABLE. WADE REMAINS IN PLACE FOR I&O'S. CLEAR YELLOW URINE OUT. ECCHYMOSIS TO LEFT ARM WORSENING, NO ERYTHEMA NOTED. POWERGLIDE PATENT, ASPIRATES BLOOD, DRESSING CHANGED. PT DENIES PAIN TO AREA. WILL CONTINUE TO MONITOR UNTIL REPORT TO ONCOMING NURSE.
--- NOTE | 2023-07-01 18:55 | NUR ---
PHYSICIAN UPDATE CALLED DR SEAN wilson UPTRENDING CBG, VERBAL ORDER TO RESTART INSULIN GTT. ADITYA CALLED c NA RESULTS. AGREES c INSULIN GTT, IVF ORDER TO REMAIN THE SAME, REPEAT NA AT 2200.
--- NOTE | 2023-07-01 19:40 | NUR ---
DR. BURGESS CLARIFIED SPOKE WITH DR. BURGESS REGARDING CBG AND RESTARTING INSULIN TO DETERMINE IF HE WANTED A POTASSIUM DRAWN WITH SODIUM LAB FOLLOWING RESTARTING INSULIN. DR. BURGESS AGREED, AND RENAL PANEL ORDERED.
--- NOTE | 2023-07-01 19:56 | NUR ---
ASSUMED CARE OF PATIENT AT 1900 PATIENT IS SLEEPING COMFORTABLY IN BED. ONCE AWOKEN FOR ASSESSMENT HE IS PLEASANT, A&O X4. BP STABLE, SR IN 90'S. PATIENT IS ON ROOM AIR WITH O2 SATURATION IN 90'S. WDAE IS IN PLACE DRAINING CLEAR YELLOW URINE. MONITORING HOURLY URINE OUTPUT. PG TO GOLDIE, INFUSING NS AT 75mL/HR. PIV TO RAC, SALINE LOCKED.
[2023-07-01 22:51] LABS: Albumin, Blood 2.6 g/dL (3.4-5.0); Anion Gap 5 mmol/L (6-16); Blood Urea Nitrogen 18 mg/dL (8-24); Bun/Creatinine Ratio 16.7 (12.0-20.0); CO2, Blood 25 mmol/L (21-32); Calcium, Blood 7.9 mg/dL (8.5-10.1); Chloride, Blood 113 mmol/L (98-108); Creatinine, Blood 1.08 mg/dL (0.60-1.20); Glomerular Filtration Rate 82 (60-); Glucose, Blood 290 mg/dL (70-99); Phosphorus, Blood 2.5 mg/dL (2.5-4.9); Potassium, Blood 3.6 mmol/L (3.5-5.5); Sodium, Blood 143 mmol/L (136-145)
[2023-07-02] VITALS (16 sets, daily range): BP systolic 108–169; BP diastolic 56–92
[2023-07-02 03:20] LABS: BASOPHILS ABSOLUTE AUTO 0.06 K/mm3 (0.00-0.23); BASOPHILS PERCENT AUTO 1 % (0-2); EOSINOPHILS PERCENT AUTO 3 % (0-6); Hematocrit 36.5 % (37.0-53.0); Hemoglobin 11.4 g/dL (13.5-17.5); IMMATURE GRAN ABSOLUTE AUTO 0.13 K/mm3 (0.00-0.10); IMMATURE GRAN PERCENT AUTO 1 % (0-1); LYMPHOCYTES ABSOLUTE AUTO 2.18 K/mm3 (0.84-5.20); LYMPHOCYTES PERCENT AUTO 22 % (21-46); MONOCYTES ABSOLUTE AUTO 0.73 K/mm3 (0.16-1.47); MONOCYTES PERCENT AUTO 7 % (4-13); Mean Corpuscular HGB 26.5 pg (26.0-34.0); Mean Corpuscular HGB Conc 31.2 g/dL (31.5-36.5); Mean Corpuscular Volume 85 fL (80-100); Mean Platelet Volume 9.8 fL (9.1-12.4); NEUTROPHILS ABSOLUTE AUTO 6.66 K/mm3 (1.96-9.15); NEUTROPHILS PERCENT AUTO 66 % (41-73); Platelet Count 110 K/mm3 (150-400); RDW Coefficient Variation 15.4 % (11.7-14.2); RDW Standard Deviation 46.9 fL (35.1-46.3); White Blood Cell Count 10.06 K/mm3 (4.00-11.30)
[2023-07-02 03:38] LABS: Albumin, Blood 2.6 g/dL (3.4-5.0); Anion Gap 2 mmol/L (6-16); Blood Urea Nitrogen 16 mg/dL (8-24); Bun/Creatinine Ratio 15.1 (12.0-20.0); CO2, Blood 30 mmol/L (21-32); Calcium, Blood 7.8 mg/dL (8.5-10.1); Chloride, Blood 115 mmol/L (98-108); Creatinine, Blood 1.06 mg/dL (0.60-1.20); Glomerular Filtration Rate 84 (60-); Glucose, Blood 178 mg/dL (70-99); Magnesium, Blood 2.8 mg/dL (1.6-2.4); Phosphorus, Blood 2.5 mg/dL (2.5-4.9); Potassium, Blood 3.5 mmol/L (3.5-5.5); Sodium, Blood 147 mmol/L (136-145)
--- NOTE | 2023-07-02 05:24 | NUR ---
SHIFT SUMMARY. PATIENT REMAINED ALERT AND ORIENTED X 4 THROUGHOUT ENTIRETY OF SHIFT. HE WAS ABLE TO AMBULATE AROUND THE UNIT WITH FWW AND 2 PERSON STAND BY ASSIST, AND WAS ABLE TO AMBULATE TO BEDSIDE COMMODE WITH FWW AND ONE PERSON STAND BY ASSIST. BP REMAINED STABLE THROUGHOUT ENTIRETY OF SHIFT; SR WITH HR IN 60'S-80'S. PATIENT REMAINED ON ROOM AIR DURING SHIFT WITH O2 SATS IN MID-HIGH 90'S. PATIENT HAD ONE MEDIUM STOOL; BROWN AND FORMED. WADE STILL IN PLACE DRAINING PALE URINE TO GRAVITY WITH HOURLY URINE OUTPUTS BEING DOCUMENTED. POWERGLIDE TO GOLDIE, PIV TO RAC. INSULIN AT 4UNITS/HR, 1/2NS AT 125mL/HR, K-PHOS X 1 RUNNING AT 125mL/HR. WILL CONTINUE TO MONITOR AND REPORT TO ONCOMING NURSE INDICATED.
--- NOTE | 2023-07-02 09:01 | NUR ---
ASSUMED CARE REPORT FROM BRIJESH BRITO AT 0700. PT RESTING IN BED. A&O X 4. FOLLOWS COMMANDS. ABLE TO MAKE NEEDS KNOWN. DENIES COMPLAINTS. LUNGS DIM IN BASES, OCCASIONAL COUGH. ON RA, SATS >95%. SR, RATE 70-80'S. BP STABLE. ABD OBESE, SOFT, NON TENDER. BT X 4. WADE IN PLACE FOR I&O'S. DRAINING CLEAR YELLOW URINE TO GRAVITY. 2+ EDEMA TO BLE. 1/2 NS INFUSING AT 100ML/HR, INSULIN GTT INFUSING. q1 HR CBGS. LONG AND SHORT ACTING INSULIN STARTED. ATE 50% OF BREAKFAST, TOLERATING PO WELL. AMB IN ROOM c WALKER, STANDBY ASSIST. WILL CONTINUE TO MONITOR.
--- NOTE | 2023-07-02 17:16 | NUR ---
SHIFT SUMMARY NO ACUTE CHANGES THIS SHIFT. REMAINS ON INSULIN GTT, INFUSING AT 6 UNITS/HR. CBG q1 HR. RESTARTED LONG AND SHORT ACTING INSULIN. 1/2 NS INFUSING AT 100 ML/HR. PT UO APPROX 400-500 ML/HR. WADE PATENT, DRAINING CLEAR YELLOW URINE. IMPROVED PO INTAKE THIS SHIFT. UP TO WALK IN UNIT c WALKER SEVERAL TIMES. TOLERATED WELL. SR, RATE 90-100'S. BP STABLE. NA PENDING. WILL CONTINUE TO MONITOR UNTIL REPORT TO ONCOMING NURSE.
--- NOTE | 2023-07-02 19:11 | NUR ---
ASSUMED CARE OF PATIENT RECEIVED REPORT FROM ALISHA ROBERSON. PATIENT SLEEPING IN HIS ROOM WITH TV AND LIGHTS ON. BP 132/68, SR WITH HR OF 83. REMAINS A&O X 4. RA WITH SATURATION AT 92%. WADE IN PLACE DRAINING CLEAR YELLOW URINE TO GRAVITY. INSULIN AT 6 UNITS, 1/2 NS AT 75 mL/HR. NO ACUTE NEEDS AT THIS TIME. CALL LIGHT IN REACH, WILL CONTINUE TO MONITOR.
[2023-07-03] VITALS (11 sets, daily range): BP systolic 111–181; BP diastolic 70–90
[2023-07-03 03:23] LABS: BASOPHILS ABSOLUTE AUTO 0.06 K/mm3 (0.00-0.23); BASOPHILS PERCENT AUTO 1 % (0-2); EOSINOPHILS ABSOLUTE AUTO 0.35 K/mm3 (0.00-0.68); EOSINOPHILS PERCENT AUTO 4 % (0-6); Hematocrit 35.1 % (37.0-53.0); Hemoglobin 11.1 g/dL (13.5-17.5); IMMATURE GRAN PERCENT AUTO 2 % (0-1); LYMPHOCYTES ABSOLUTE AUTO 2.05 K/mm3 (0.84-5.20); LYMPHOCYTES PERCENT AUTO 21 % (21-46); MONOCYTES ABSOLUTE AUTO 0.72 K/mm3 (0.16-1.47); MONOCYTES PERCENT AUTO 7 % (4-13); Mean Corpuscular HGB 26.7 pg (26.0-34.0); Mean Corpuscular HGB Conc 31.6 g/dL (31.5-36.5); Mean Corpuscular Volume 84 fL (80-100); Mean Platelet Volume 9.6 fL (9.1-12.4); NEUTROPHILS ABSOLUTE AUTO 6.45 K/mm3 (1.96-9.15); NEUTROPHILS PERCENT AUTO 66 % (41-73); Platelet Count 133 K/mm3 (150-400); RDW Coefficient Variation 15.6 % (11.7-14.2); Red Blood Cell Count 4.16 M/mm3 (4.30-5.90); White Blood Cell Count 9.83 K/mm3 (4.00-11.30)
[2023-07-03 03:38] LABS: Magnesium, Blood 2.4 mg/dL (1.6-2.4)
[2023-07-03 03:39] LABS: Albumin, Blood 2.7 g/dL (3.4-5.0); Anion Gap 6 mmol/L (6-16); Blood Urea Nitrogen 16 mg/dL (8-24); Bun/Creatinine Ratio 14.7 (12.0-20.0); CO2, Blood 28 mmol/L (21-32); Calcium, Blood 8.1 mg/dL (8.5-10.1); Chloride, Blood 114 mmol/L (98-108); Creatinine, Blood 1.09 mg/dL (0.60-1.20); Glomerular Filtration Rate 81 (60-); Glucose, Blood 185 mg/dL (70-99); Phosphorus, Blood 2.8 mg/dL (2.5-4.9); Potassium, Blood 3.8 mmol/L (3.5-5.5); Sodium, Blood 148 mmol/L (136-145)
[2023-07-03 03:56] LABS: BASOPHILS ABSOLUTE AUTO 0.06 K/mm3 (0.00-0.23); BASOPHILS PERCENT AUTO 1 % (0-2); EOSINOPHILS ABSOLUTE AUTO 0.32 K/mm3 (0.00-0.68); EOSINOPHILS PERCENT AUTO 3 % (0-6); Hematocrit 35.4 % (37.0-53.0); Hemoglobin 11.1 g/dL (13.5-17.5); IMMATURE GRAN ABSOLUTE AUTO 0.25 K/mm3 (0.00-0.10); IMMATURE GRAN PERCENT AUTO 3 % (0-1); LYMPHOCYTES ABSOLUTE AUTO 2.01 K/mm3 (0.84-5.20); LYMPHOCYTES PERCENT AUTO 21 % (21-46); MONOCYTES ABSOLUTE AUTO 0.69 K/mm3 (0.16-1.47); MONOCYTES PERCENT AUTO 7 % (4-13); Mean Corpuscular HGB 26.2 pg (26.0-34.0); Mean Corpuscular HGB Conc 31.4 g/dL (31.5-36.5); Mean Corpuscular Volume 84 fL (80-100); Mean Platelet Volume 9.7 fL (9.1-12.4); NEUTROPHILS ABSOLUTE AUTO 6.37 K/mm3 (1.96-9.15); NEUTROPHILS PERCENT AUTO 66 % (41-73); Platelet Count 129 K/mm3 (150-400); RDW Coefficient Variation 15.6 % (11.7-14.2); RDW Standard Deviation 46.4 fL (35.1-46.3); Red Blood Cell Count 4.23 M/mm3 (4.30-5.90)
[2023-07-03 04:12] LABS: Albumin, Blood 2.6 g/dL (3.4-5.0); Anion Gap 5 mmol/L (6-16); Blood Urea Nitrogen 16 mg/dL (8-24); Bun/Creatinine Ratio 14.5 (12.0-20.0); CO2, Blood 28 mmol/L (21-32); Calcium, Blood 8.5 mg/dL (8.5-10.1); Chloride, Blood 115 mmol/L (98-108); Glomerular Filtration Rate 80 (60-); Glucose, Blood 195 mg/dL (70-99); Magnesium, Blood 2.4 mg/dL (1.6-2.4); Phosphorus, Blood 2.9 mg/dL (2.5-4.9); Potassium, Blood 4.2 mmol/L (3.5-5.5); Sodium, Blood 148 mmol/L (136-145)
--- NOTE | 2023-07-03 06:43 | NUR ---
END OF SHIFT SUMMARY PATIENT REMAINED ALERT AND ORIENTED X 4 THROUGHOUT ENTIRETY OF SHIFT. HE AMBULATED TO THE BEDSIDE COMMODE ONCE WITHOUT DIFFICULTY. BP REMAINED STABLE, SR WITH HR IN 70-80'S. PATIENT ON ROOM AIR WITH SATURATIONS IN HIGH 90'S. WADE REMAINED IN PLACE, DRAINING CLEAR YELLOW URINE. REMOVED AT 0640 FOR PATIENT COMFORT. INSULIN AT 7 UNITS, POWER GLIDE TO GOLDIE FLUSHING AND DRAWING WELL. 1/2 NS SWITCHED TO D5W PER DR. BURGESS. PIV TO RFA FLUSHING BUT NOT DRAWING BLOOD. WILL CONTINUE TO MONITOR AND REPORT TO ONCOMING NURSE.
--- NOTE | 2023-07-03 07:27 | NUR ---
Assumed care. Report received from nightshift RN. Pt resting in bed, A&O, on RA. Insulin infusing at 7 units/hr, D5W infusing at 100 ml/hr. No acute needs at time of report. VS stable, will continue to monitor.
--- NOTE | 2023-07-03 18:28 | NUR ---
Shift summary. Pt stable this shift. Up to chair several times today, pt ambulating frequently with this RN and walker. Alert and oriented, on RA. Insulin titrated off at 1545, D5W titrated downt to 75ml/hr per Dr. Garcia. Sodium decreased this shift, next check at 2200. No acute events this shift, reassessments unremarkable, VS stable. See chart for further details. Will continue to monitor and report off to nightshift RN.
--- NOTE | 2023-07-03 19:22 | NUR ---
ASSUMED CARE OF PATIENT RECEIVED REPORT FROM THOM BRITO. PATIENT ALERT AND ORIENTED X 4. ANXIOUS TO GO ON ANOTHER WALK. SR WITH HR IN 70'S. BP STABLE. ON ROOM AIR WITH O2 SATURATION IN 90'S. AMBULATES TO BEDSIDE COMMODE WITH FWW. VOIDING INDEPENDENTLY. SHOWERED TODAY. POWERGLIDE TO GOLDIE. INSULIN ON STANDBY, D5W RUNNING AT 75mL/HR. STAT SODIUM TO BE DRAWN AT 1000. WILL CONTINUE TO MONITOR.
[2023-07-04] VITALS (10 sets, daily range): BP systolic 123–168; BP diastolic 59–84
[2023-07-04 03:29] LABS: Hematocrit 34.1 % (37.0-53.0)
[2023-07-04 03:49] LABS: Albumin, Blood 2.7 g/dL (3.4-5.0); Anion Gap 4 mmol/L (6-16); Blood Urea Nitrogen 18 mg/dL (8-24); Bun/Creatinine Ratio 16.7 (12.0-20.0); CO2, Blood 29 mmol/L (21-32); Calcium, Blood 8.3 mg/dL (8.5-10.1); Chloride, Blood 112 mmol/L (98-108); Creatinine, Blood 1.08 mg/dL (0.60-1.20); Glomerular Filtration Rate 82 (60-); Glucose, Blood 190 mg/dL (70-99); Magnesium, Blood 2.5 mg/dL (1.6-2.4); Phosphorus, Blood 3.5 mg/dL (2.5-4.9); Potassium, Blood 4.2 mmol/L (3.5-5.5); Sodium, Blood 145 mmol/L (136-145)
[2023-07-04 04:50] LABS: Lithium 0.29 mmol/L (0.60-1.20)
--- NOTE | 2023-07-04 05:17 | NUR ---
END OF SHIFT SUMMARY PATIENT REMAINED ALERT AND ORIENTED X 4 THROUGHOUT THE REMAINDER OF THE SHIFT. HE AMBULATED INDEPENDENTLY WITH SBA AROUND THE UNIT AND TO BEDSIDE COMMODE. BP REMAINED STABLE. SR WITH HR IN 70's-90's. PATIENT REMAINED ON ROOM AIR WITH SATURATIONS IN HIGH 90's. WADE WAS REMOVED 07/03/23 AM. PATIENT AMBULATES TO BEDSIDE COMMODE, UTILIZES URINAL, AND LEAVES IT ON THE BACK OF THE COMMODE SO THE VOLUME CAN BE DOCUMENTED. URINE IS CLEAR, YELLOW, AND IS NOT MALODOROUS. NO BM DURING THIS SHIFT. POWERGLIDE TO GOLDIE INFUSING 1/2 NS AT 75mL/HR (SWITCHED FROM D5W PER DR. BURGESS) FLUSHES AND DRAWS WELL. STAT SODIUM ORDERED FOR [address] BURGESS IS REQUESTING CALL BY 1300. WILL CONTINUE TO MONITOR AND REPORT TO ONCOMING NURSE.
--- NOTE | 2023-07-04 07:00 | NUR ---
ASSUME CARE: I have assumed care of this patient.
[2023-07-04 10:32] LABS: Lithium 0.21 mmol/L (0.60-1.20)
--- NOTE | 2023-07-04 13:41 | NUR ---
PROVIDER UPDATE: Dr castro updated on NA result. See new orders.
--- NOTE | 2023-07-04 15:06 | NUR ---
PROVIDER UPDATE: Pt requesting medication for restless legs. Dr Fisher called and notified.
--- NOTE | 2023-07-04 15:40 | NUR ---
TRANSFER SUMMARY: Pt transferred up to medical floor via wheelchair by RN. Pt has denied any complaints of pain today. He ambulates with walker independently and uses call light appropriately.
--- NOTE | 2023-07-04 18:09 | NUR ---
SHIFT SUMMARY PATIENT ARRIVED TO MEDICAL FLOOR FROM ICU THIS SHIFT. NO C/O PAIN. SKIN INTACT MINUS 2 SMALL ROUND ABRAISONS TO LEFT LOWER LEG, BILATERAL HEELS CRACKED, SCALED, AND IN POOR CONDITION. EDUCATION WAS PROVIDED AND ASSISTED PATIENT WITH LOTION. AMBULATING IN HALLS INDEPENDENTLY. WILL CONITNUE TO MONITOR
--- NOTE | 2023-07-04 18:50 | NUR ---
PHYSICIAN CONTACT CALLED DR BURGESS WITH SODIUM RESULTS. ORDERED STAT SODIUM FOR 2199 WITH A RESULT CALL BY [id number], [facility] NURSE INFORMED.
[2023-07-05 04:52] LABS: Hemoglobin 11.2 g/dL (13.5-17.5)
[2023-07-05 05:08] LABS: Albumin, Blood 2.9 g/dL (3.4-5.0); Anion Gap 5 mmol/L (6-16); Blood Urea Nitrogen 18 mg/dL (8-24); Bun/Creatinine Ratio 17.8 (12.0-20.0); CO2, Blood 26 mmol/L (21-32); Calcium, Blood 8.7 mg/dL (8.5-10.1); Chloride, Blood 113 mmol/L (98-108); Creatinine, Blood 1.01 mg/dL (0.60-1.20); Glomerular Filtration Rate 89 (60-); Glucose, Blood 181 mg/dL (70-99); Magnesium, Blood 2.7 mg/dL (1.6-2.4); Phosphorus, Blood 3.9 mg/dL (2.5-4.9); Potassium, Blood 4.1 mmol/L (3.5-5.5); Sodium, Blood 144 mmol/L (136-145)
--- NOTE | 2023-07-05 05:24 | NUR ---
PT ARRIVED TO UNIT ROUGHLY 0130 FROM ED, PT IS A&O4, NO EPISODES OF VOMITING SINCE ARRIVAL TO UNIT, PT IS A&O4, INDEPENDENT WITH ADLS, NO ACUTE EVENTS OR COMPLAINTS OF PAIN, CONTINUE POC
[2023-07-05 07:23] VITALS: BP 137/69
[2023-07-05] MEDS ORDERED: AMIL5 PO (11:34)
[2023-07-05] MEDS ORDERED: HYDCHL25 PO (11:35)
[2023-07-05] MEDS ORDERED: AMLO5 PO (11:35)
[2023-07-05] MEDS ORDERED: BASAGLAR K100 UNIT/1 SC (11:36)
[2023-07-05] MEDS ORDERED: HUMALOG JU100 UNIT/2 SC (11:37)
[2023-07-05] MEDS ORDERED: ROPI.25 PO (11:38)
--- NOTE | 2023-07-05 15:48 | NUR ---
1520 PATIENT DISCHARGED VIA W/C, FRIEND ACCOMPANYING, PATIENT STATED UNDERSTANDING OF MEDICATIONS, REGIMEN, AND FOLLOW UP NEEDS
== END 2023-07-05 14:20 | disposition home or self-care (01) | DRG 682 ==
LOC: ER 07:59 → ICUE 11:03 → MEDS 07-04 15:30
PROVIDERS: Emergency Medicine; Internal Medicine; Internal Medicine Nephrology; Registered Nurse Psychiatric/Mental Health, Adult; ADMIT Internal Medicine
PROC: 0T9B70Z Drainage of Bladder with Drainage Device, Via Natural or Artificial Opening (ICD-10-PCS; principal; 2023-06-27)
PROC: 4A033R1 Measurement of Arterial Saturation, Peripheral, Percutaneous Approach (ICD-10-PCS; 2023-06-27)
DX: N17.9 Acute kidney failure, unspecified (principal); G92.8 Other toxic encephalopathy; R57.1 Hypovolemic shock; J96.01 Acute respiratory failure with hypoxia; E87.20 Acidosis, unspecified; E87.0 Hyperosmolality and hypernatremia; E87.1 Hypo-osmolality and hyponatremia; J44.1 Chronic obstructive pulmonary disease with (acute) exacerbation; Z20.822 Contact with and (suspected) exposure to COVID-19; N11.9 Chronic tubulo-interstitial nephritis, unspecified; N25.1 Nephrogenic diabetes insipidus; E11.65 Type 2 diabetes mellitus with hyperglycemia; F31.9 Bipolar disorder, unspecified; I12.9 Hypertensive chronic kidney disease with stage 1 through stage 4 chronic kidney disease, or unspecified chronic kidney disease; N18.9 Chronic kidney disease, unspecified; E87.6 Hypokalemia; E88.09 Other disorders of plasma-protein metabolism, not elsewhere classified; E66.9 Obesity, unspecified; D63.1 Anemia in chronic kidney disease; E11.22 Type 2 diabetes mellitus with diabetic chronic kidney disease; E83.52 Hypercalcemia; F17.210 Nicotine dependence, cigarettes, uncomplicated; E11.42 Type 2 diabetes mellitus with diabetic polyneuropathy; F12.90 Cannabis use, unspecified, uncomplicated; E86.9 Volume depletion, unspecified; R35.89 Other polyuria; E86.0 Dehydration; E87.70 Fluid overload, unspecified; R45.1 Restlessness and agitation; Z88.5 Allergy status to narcotic agent; Z91.018 Allergy to other foods; Z88.8 Allergy status to other drugs, medicaments and biological substances; Z79.899 Other long term (current) drug therapy; Z90.49 Acquired absence of other specified parts of digestive tract; Z79.82 Long term (current) use of aspirin; Z79.4 Long term (current) use of insulin; Z78.1 Physical restraint status; Z68.39 Body mass index [BMI] 39.0-39.9, adult; Z79.51 Long term (current) use of inhaled steroids; Z87.19 Personal history of other diseases of the digestive system
CPT/HCPCS: 0241U; 36415; 36600; 51702; 71045; 76770; 80048; 80053; 80069; 80178; 81001; 82010; 82803; 82947; 83036; 83605; 83735; 83930; 83935; 84156; 84295; 85014; 85018; 85025; 85027; 87040; 93005; 93010; 94640; 94644; 94664; 94760; 94762; 96361; 96365; 96375; 97110; 97116; 97162; 99285-25; A9270; C1751; J0456; J0696; J1644; J1815; J2060; J2597; J2930; J3480; J7030; J7050; J7060; J7070; J7120